=== PATIENT | female | born 1945 | race Caucasian/White ===

== ENCOUNTER 2017-03-31 10:19 | Day surgery (SDC) | payer OTHER, BC ==
[~2017-03-31] VITALS: Ht 167.6 cm; Wt 124.2 kg
[~2017-03-31 10:19] MED LIST: ACTOS15 MG PO; ALDACTONE50 MG PO; CARTIA XT180 MG PO; CELEXA20 MG PO; CITALOPRAM HBR40 MG PO; CRESTOR20 MG PO; DIOVAN80 MG PO; EXCEDRIN MIGRA1 EAC3 PO; HYDROCHLOROTHIA50 MG PO; IMDUR30 MG PO; K-SOL20 MEQ/15 PO; LASIX40 MG PO; LEVOTHYROXINE137 MCG PO; LEVOXYL137 MCG PO; LISINOPRIL20 MG PO; MAGNESIUM OXID400 MG PO; NEXIUM40 MG PO; NOVOLIN N100 UNITS/ SC; NOVOLIN,HU100 UNITS1 SC; OMEPRAZOLE40 M1 PO; ONE DAILY 50 P1 EACH PO; PREDNISONE5 MG PO; TYLENOL EXTRA500 MG PO; VICTOZA 2-0.6 MG/0.1 SC; XALATAN2.5 ML LEFT EYE; XARELTO1 EACH PO; XARELTO20 MG PO; ZOLOFT100 MG PO
[2017-03-31 11:00] LABS: POINT-OF-CARE METER ID UU14174212
[2017-03-31 11:15] VITALS: BP 159/70
[2017-03-31 13:44] LABS: POINT-OF-CARE METER ID UU13113675
[2017-03-31 14:45] VITALS: BP 126/60
[2017-03-31 15:40] VITALS: BP 124/57
[2017-03-31 17:55] VITALS: BP 147/67
== END 2017-03-31 18:09 | disposition home or self-care (01) ==
LOC: SDC 10:19
PROVIDERS: Obstetrics & Gynecology
DX: N84.0 Polyp of corpus uteri (principal); N95.0 Postmenopausal bleeding; I48.2 Chronic atrial fibrillation; I10 Essential (primary) hypertension; E11.9 Type 2 diabetes mellitus without complications; K21.9 Gastro-esophageal reflux disease without esophagitis; E03.9 Hypothyroidism, unspecified; E66.9 Obesity, unspecified; Z68.41 Body mass index [BMI] 40.0-44.9, adult; E78.00 Pure hypercholesterolemia, unspecified; G47.33 Obstructive sleep apnea (adult) (pediatric); I47.1 Supraventricular tachycardia; I45.10 Unspecified right bundle-branch block; Z86.718 Personal history of other venous thrombosis and embolism; Z79.4 Long term (current) use of insulin
CPT/HCPCS: 82948; 88305; J0690; J2250; J3010

== ENCOUNTER → 2017-07-05 | Outpatient (CLI) | payer OTHER, BC ==
[~2017-07-05] VITALS: Ht 168.9 cm; Wt 124.2 kg
[~2017-07-05] MED LIST changes: -OMEPRAZOLE40 M1 PO; +PRILOSEC20 MG PO; +VITAMIN D32000 UNI1 PO; +VITAMIN E400 UNIT PO
== END | disposition home or self-care (01) ==
LOC: AMB 11:05
PROVIDERS: Internal Medicine Gastroenterology
DX: D12.2 Benign neoplasm of ascending colon (principal); D12.0 Benign neoplasm of cecum; D12.4 Benign neoplasm of descending colon; D12.5 Benign neoplasm of sigmoid colon; K64.8 Other hemorrhoids; I10 Essential (primary) hypertension; E11.9 Type 2 diabetes mellitus without complications; E03.9 Hypothyroidism, unspecified; I48.91 Unspecified atrial fibrillation; I45.10 Unspecified right bundle-branch block; E78.00 Pure hypercholesterolemia, unspecified; Z79.4 Long term (current) use of insulin; Z79.01 Long term (current) use of anticoagulants; Z86.711 Personal history of pulmonary embolism
CPT/HCPCS: 82948; 88305; J2405

== ENCOUNTER 2017-10-14 17:40 | Emergency (ER) | payer OTHER, BC ==
[~2017-10-14] VITALS: Ht 167.6 cm; Wt 126.1 kg
[2017-10-14 18:41] LABS: HEMATOCRIT 37.7 % (36.0-46.0); HEMOGLOBIN 13.3 G/DL (11.9-15.5); MCH 30.9 PG (29.0-34.0); MCHC 35.3 G/DL (30.0-36.0); MCV 87.7 FL (83-99); PLATELET COUNT 206 K/uL (156-360); RBC DIS.WIDTH-CV 13.8 % (11.8-14.6); RBC DIS.WIDTH-SD 44.1 % (39-53); WHITE BLOOD COUNT 12.8 K/uL (4.1-10.2)
[2017-10-14 18:53] LABS: CHLORIDE 104 mEq/L (99-109); POTASSIUM 4.1 mEq/L (3.7-5.4); SODIUM 137 mEq/L (136-147)
[2017-10-14 18:55] LABS: GLUCOSE 155 mg/dL (70-99)
[2017-10-14 18:59] LABS: CREATININE 1.7 mg/dL (0.6-1.3); GFR ESTIMATE (CALCULATED) 31 mL/min/
[2017-10-14 19:00] LABS: UREA NITROGEN (BUN) 26 mg/dL (9-23)
[2017-10-14 22:53] VITALS: BP 137/73
== END 2017-10-14 22:59 | disposition home or self-care (01) ==
LOC: EME 17:40
PROVIDERS: Physician Assistant
DX: R19.7 Diarrhea, unspecified (principal); E86.0 Dehydration; E11.9 Type 2 diabetes mellitus without complications; E78.5 Hyperlipidemia, unspecified; Z85.828 Personal history of other malignant neoplasm of skin; Z86.718 Personal history of other venous thrombosis and embolism; Z86.711 Personal history of pulmonary embolism; Z79.01 Long term (current) use of anticoagulants; Z79.4 Long term (current) use of insulin; Z90.49 Acquired absence of other specified parts of digestive tract; Z88.8 Allergy status to other drugs, medicaments and biological substances
CPT/HCPCS: 80048; 82948; 85027; 87493; 99281; 99284; J7040